=== PATIENT | male | born 1990 ===

== ENCOUNTER 2025-02-17 12:14 | Outpatient (REF) | payer BC, SELFPAY | END 2025-02-17 12:15 | disposition home or self-care (01) | LOC: NCHCN 12:14 | PROVIDERS: Visit Provider Physician Assistant | DX: R39.15 Urgency of urination (principal) | CPT/HCPCS: 87086 ==

== ENCOUNTER 2025-03-19 16:51 | Outpatient (REF) | payer BC, SELFPAY | END 2025-03-19 16:52 | disposition home or self-care (01) | LOC: NCHCN 16:51 | PROVIDERS: Visit Provider Physician Assistant | DX: R39.89 Other symptoms and signs involving the genitourinary system (principal) | CPT/HCPCS: 87086 ==